=== PATIENT | male | born 1960 | race Caucasian/White ===

== ENCOUNTER 2016-12-18 08:15 | Outpatient (CLI) | payer OTHER | END 2016-12-18 08:16 | disposition home or self-care (01) | LOC: BURLAB 08:15 | PROVIDERS: ATTEND Neurological Surgery | DX: M54.16 Radiculopathy, lumbar region (principal) | CPT/HCPCS: 36415; 82565 ==

== ENCOUNTER 2019-02-14 16:56 | Outpatient (CLI) | payer OTHER ==
--- NOTE | 2019-02-14 18:03 | RAD ---
CHEST TWO VIEWS: Date: 02-14-19 Comparison: 10-09-14 FINDINGS: The heart is normal in size and the lungs are clear. No infiltrate or effusion was seen. The mediasti num appears normal and the trachea is midline. There has been no adverse change in the interval. IMPRESSION: No acute thoracic findings. POS: HOME
== END 2019-02-14 16:57 | disposition home or self-care (01) ==
LOC: BURRAD 16:56
PROVIDERS: ATTEND Family Medicine
DX: R06.00 Dyspnea, unspecified (principal)
CPT/HCPCS: 71046

== ENCOUNTER 2023-10-21 21:08 | Emergency (ER) | payer MEDICARE, OTHER ==
[2023-10-21 21:40] LABS: #Basophils 0.1 thou/uL (0.0-0.2); #Eosinphils 0.1 thou/uL (0.0-0.7); #Lymphocytes 1.5 thou/uL (1.20-3.40); #Monocytes 0.4 thou/uL (0.11-0.59); #Neutrophils 3.2 thou/uL (1.40-6.50); %Eosinophils 2.6 % (0.0-10.0); %Lymphocytes 28.3 % (21.0-51.0); %Monocytes 7.1 % (0.0-10.0); Hematocrit 45.9 % (42.0-52.0); Hemoglobin 15.3 g/dL (14.0-18.0); Mean Corpuscular HGB CONC 33.4 g/dL (32.0-36.0); Mean Corpuscular Hemoglobin 30.3 pg (27.0-31.0); Mean Corpuscular Volume 90.7 fl (78.0-98.0); Mean Platelet Volume 7.6 fL (7.4-10.4); Platelet Count 217 10x3/uL (130-400); RBC Distribution Width 10.3 % (11.5-14.5); Red Blood Cell (RBC) Count 5.06 mill/uL (4.70-6.10); White Blood Cell (WBC) Count 5.3 10x3/uL (4.8-10.8)
[2023-10-21] MEDS ORDERED: Ondansetron PF 4 MG/2 ML Vial ONE (21:40)
[2023-10-21] MEDS ORDERED: Heparin 10,000 UNITS/ 10 ML VIAL ONE (21:41)
[2023-10-21] MEDS ORDERED: Heparin 25,000 units/D5W 500 ML ONE (21:41)
[2023-10-21 21:52] LABS: Prothrombin Time 12.8 sec (12.0-14.7)
[2023-10-21 21:53] LABS: PTT 30.2 sec (22.9-36.1)
[2023-10-21 21:55] LABS: D-Dimer Test Less than 0.27 mcg/mL (0.27-0.43)
[2023-10-21 22:01] LABS: ALT (SGPT) 13 U/L (8-55); AST (SGOT) 15 U/L (5-34); Alkaline Phosphatase 36 U/L (40-110); Anion Gap 14 mmol/L (10-20); BUN (Urea Nitrogen) 17 mg/dL (8.4-25.7); Bilirubin, Total 0.3 mg/dL (0.2-1.2); Calc. Creatinine Clearance 0 mL/min (70-130); Calcium 9.6 mg/dL (7.8-10.44); Carbon Dioxide 22 mmol/L (23-31); Chloride 99 mmol/L (98-107); Estimated GFR 68; Globulin 2.6 g/dL (2.4-3.5); Glucose 123 mg/dL (80-115); Potassium 4.2 mmol/L (3.5-5.1); Protein, Total 6.6 g/dL (5.8-8.1); Sodium 131 mmol/L (136-145)
== END 2023-10-21 22:04 | disposition short-term general hospital (02) ==
LOC: BURERS 21:08
DX: M79.601 Pain in right arm (principal); I10 Essential (primary) hypertension; Z79.899 Other long term (current) drug therapy
CPT/HCPCS: 71045; 80053; 83880; 85025; 85379; 85610; 85730; 93005; 94760; 96374; 96375; J1644; J2405